=== PATIENT | female | born 1945 | race Caucasian/White ===

== ENCOUNTER 2020-10-25 09:47 | Outpatient (RCR) | payer MEDICARE | END 2020-10-30 | LOC: PT 09:47 | PROVIDERS: ATTEND Neurological Surgery | DX: M51.16 Intervertebral disc disorders with radiculopathy, lumbar region (principal) ==

== ENCOUNTER 2020-11-27 14:00 | Outpatient (RCR) | payer MEDICARE | END 2020-11-29 | LOC: PT 14:00 | PROVIDERS: ATTEND Neurological Surgery | DX: M51.16 Intervertebral disc disorders with radiculopathy, lumbar region (principal) ==

== ENCOUNTER 2020-12-20 13:46 | Outpatient (RCR) | payer MEDICARE | END 2020-12-30 | LOC: PT 13:46 | PROVIDERS: ATTEND Neurological Surgery | DX: M51.16 Intervertebral disc disorders with radiculopathy, lumbar region (principal) | CPT/HCPCS: 97139 ==